=== PATIENT | male | born 1960 | race Caucasian/White ===

== ENCOUNTER → 2021-07-18 13:05 | Outpatient (CLI) | payer BC, SELFPAY ==
--- NOTE | ~2021-07-18 | XR_ITS ---
EXAMINATION: XR chest 2V 07/18/2021 13:25 INDICATION: Wheezing and dyspnea PROCEDURE: 2 view chest COMPARISON: No prior studies for comparison. FINDINGS: The lungs are clear. The cardiomediastinal silhouette is within normal limits. There are no pleural effusions. There is no pneumothorax suspected. IMPRESSION: 1: NO ACUTE CARDIOPULMONARY DISEASE. Reviewed, dictated and finalized at location A. [employer]
== END ==
PROVIDERS: PCP Internal Medicine; Visit Provider Internal Medicine
DX: R06.2 Wheezing (principal)
CPT/HCPCS: 71046

== ENCOUNTER 2021-09-22 10:31 | Outpatient (RCR) | payer BC, SELFPAY ==
[2021-09-22] MEDS: ACETAMINOPHEN 325 MG TABLET 650 MG PO (11:55)
[2021-09-22] MEDS: diphenhydrAMINE HCl CAP 25 MG CAPSULE PO (11:55)
[2021-09-22] MEDS: FAMOTIDINE 20 MG TABLET PO (11:56)
[2021-09-22 11:58] VITALS: BP 117/73; PULSE 60; TEMP 36.7; O2SAT 100
[2021-09-22 13:33] VITALS: BP 125/70; PULSE 55; O2SAT 99
== END 2021-09-22 16:00 ==
LOC: AMCINF 10:31
PROVIDERS: PCP Internal Medicine; Referring Provider Internal Medicine; Visit Provider Internal Medicine Hematology & Oncology
DX: U07.1 COVID-19 (principal); I25.10 Atherosclerotic heart disease of native coronary artery without angina pectoris
CPT/HCPCS: A9270; M0247; Q0247

== ENCOUNTER → 2023-03-12 12:38 | Outpatient (CLI) | payer BC, SELFPAY ==
--- NOTE | ~2023-03-12 | MR_ITS ---
EXAMINATION: MR orbits face neck wo/w con DATE: 03/12/2023 14:29 INDICATION: Other visual disturbances. Temporary loss of vision. Dizziness. TECHNIQUE: Magnetic resonance imaging (MRI) of the orbits was performed without and with 14 mL MultiH ance intravenous contrast. COMPARISON: None. FINDINGS: There is no abnormal mass. The extra-axial muscles and optic nerves are normal. The optic c hiasm is normal. The ocular globes are normal. IMPRESSION: 1. Normal orbits. Reviewed, dictated and finalized at location A. IMPRESSION: 1. Normal orbits.
--- NOTE | ~2023-03-12 | MR_ITS ---
EXAMINATION: MR brain/brain stem wo/w con DATE: 03/12/2023 14:29 INDICATION: Other visual disturbances. Temporary loss of vision. Dizziness. TECHNIQUE: Magnetic resonance imaging (MRI) of the brain and brainstem was performed without and with 14 mL MultiHance intravenous contrast. COMPARISON: None. FINDINGS: There are small old infarcts in the right cerebellum. There are scattered areas of nonspeci fic increased T2-weighted signal intensity in the cerebral white matter, which is within normal limit s for the patient's age. There is no intracranial hemorrhage, acute infarction, or abnormal intracran ial mass lesion. The ventricles are normal in size. The paranasal sinuses are clear. The orbits are n ormal. The mastoid air cells are normal. IMPRESSION: 1. 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 Reviewed, dictated and finalized at location A.
== END ==
PROVIDERS: PCP Internal Medicine
DX: H53.8 Other visual disturbances (principal)
CPT/HCPCS: 70543; 70553; A9577

== ENCOUNTER → 2023-03-12 12:49 | Outpatient (CLI) | payer BC, SELFPAY ==
--- NOTE | ~2023-03-12 | US_ITS ---
EXAMINATION: US carotid duplex BI DATE: 03/12/2023 14:18 INDICATION: Carotid atherosclerosis. TECHNIQUE: Grayscale, color Doppler, and pulsed Doppler images of the cervical carotid arteries were obtained. The degree of vessel stenosis is placed in one of the following categories: normal, <50%, 5 0-69%, >=70% but less than near-occlusion, near-occlusion, or total occlusion. Note that percent sten osis relative to normal distal artery lumen diameter is indirectly measured from velocity measurement s as described by Clark, et al. Radiology 2003; 229:340-346. Notes: Normal: Peak systolic velocity <125 centimeters/sec and no plaque <50%. Peak systolic velocity <125 ( EDV <40; ICA/CCA PSV ratio <2.0; used these factors only a tandem lesions or low cardiac output or co ntralateral disease) 50-69 %: PSV 125-230 (EDV 40-100; ratio 2-4) >= 70% but less than near occlusion: PSV greater than 230 (EDV > 100; ratio> 4.0) Near Occlusion: PSV that is variable; markedly narrowed lumen Occlusion: Absent flow on color/spectral Doppler and no lumen on albright scale. COMPARISON: None. FINDINGS: RIGHT: The right common carotid artery (CCA) peak systolic velocity (PSV) is 105 cm/s. The right internal ca rotid artery (ICA) PSV is 89 cm/s. The right ICA end-diastolic velocity (EDV) is 16 cm/s. The right I CA/CCA PSV ratio is 0.8. The external carotid artery (ECA) PSV is 71 cm/s. There is antegrade flow in the right vertebral artery. LEFT: The left CCA PSV is 116 cm/s. The left ICA PSV is 80 cm/s. The left ICA EDV is 18 cm/s. The left ICA/ CCA PSV ratio is 0.7. The ECA PSV is 72 cm/s. There is antegrade flow in the left vertebral artery. IMPRESSION: 1. Less than 50% stenosis in the right internal carotid artery by sonographic criteria. 2. Less than 50% stenosis in the left internal carotid artery by sonographic criteria. Reviewed, dictated and finalized at location A. IMPRESSION: 1. Less than 50% stenosis in the right internal carotid artery by sonographic gustavo suggs. 2. Less than 50% stenosis in the left internal carotid artery by sonographic rajani sanchez.
== END ==
PROVIDERS: PCP Internal Medicine; Visit Provider Internal Medicine
DX: I65.23 Occlusion and stenosis of bilateral carotid arteries (principal)
CPT/HCPCS: 93880

== ENCOUNTER 2024-10-23 09:55 | Emergency (ER) | payer BC, SELFPAY ==
[2024-10-23 10:08] VITALS: BP 134/54; PULSE 67; RESP 16; TEMP 36.7; O2SAT 98
[2024-10-23 10:15] LABS: EDSTREPNEGPOS1 Negative (Negative)
--- NOTE | 2024-10-23 10:24 | ED.URI ---
HPI - URI/Sore Throat General Chief Complaint: Upper Respiratory Infection Stated Complaint: Sore Throat Time Seen by Provider: 10/23/24 10:24 Source: patient Mode of arrival: ambulatory Limitations: no limitations History of Present Illness HPI Narrative: 64-year-old male presents with complaint of sore throat and postnasal drainage starting yesterday. Afebrile. No body aches, chills or fatigue. Patient concern for strep throat. Thinks he saw white spots on throat this morning. All systems reviewed and negative except as noted above. Related Data Home Medications ?Medication ?Instructions ?Recorded ?Confirmed ?Last Taken ?Type No Home Medications 09/22/21 10/23/24 Unknown History Allergies Allergy/AdvReac Type Severity Reaction Status Date / Time No Known Allergies Allergy Verified 10/23/24 10:00 Review of Systems Review of Systems: CONSTITUTIONAL: Denies fever, chills, or sweats. EYES: Denies visual changes, redness, or discharge. ENT: Denies rhinorrhea, congestion . Reports sore throat. Denies otalgia. CARDIOVASCULAR: Denies chest pain, palpitations, or edema. RESPIRATORY: Denies cough or dyspnea. GASTROINTESTINAL: Denies abdominal pain, nausea, vomiting, or diarrhea. GENITOURINARY: Denies dysuria or hematuria. SKIN: Denies rash or itching. MUSCULOSKELETAL: Denies back pain, joint pain, or myalgia. NEUROLOGIC: Denies headache, numbness, or weakness. PSYCHIATRIC: Denies anxiety or depression. All other systems reviewed are negative, except as documented in HPI. PMFSH Comments At time of signature, agree with nursing past medical, surgical, social and family history. There is no relevant family history pertinent to the presenting complaint. Exam Narrative: GENERAL: This is a well-nourished, well-developed patient, in no apparent distress. HEAD: normocephalic, atraumatic. EYES: PERRL. Sclera clear/white. Vision is grossly intact. EARS: External ears normal, auditory canals clear and without drainage, TMs normal without perforation. Hearing grossly intact. NOSE: External nose normal with clear nasal drainage without significant congestion or swelling to nares THROAT: Mucous membranes moist, mild erythema without and use eights or swelling. Clear postnasal drainage NECK: Neck supple, non-tender without lymphadenopathy, masses or thyromegaly. CARDIOVASCULAR: Regular rate and rhythm without murmurs, gallops, or rubs. RESPIRATORY: Clear to auscultation. Breath sounds equal bilaterally. No wheezes, rales, or rhonchi. SKIN: warm, Dry, intact with no suspicious lesions or rash, good texture and turgor. NEURO: awake, alert, and oriented to person, place and time. There were no obvious focal neurologic abnormalities. EXTREMITIES: No joint tenderness, effusion, or edema noted. Course Course Level of Care: Express Care Visit Vital Signs Vital signs: Vital Signs Temperature 36.7 C 10/23/24 10:08 Pulse Rate 67 10/23/24 10:08 Respiratory Rate 16 10/23/24 10:08 Blood Pressure 134/54 L 10/23/24 10:08 Pulse Oximetry 98 10/23/24 10:08 Oxygen Delivery Room Air 10/23/24 10:08 Temperature 36.7 C 10/23/24 10:08 Pulse Rate 67 10/23/24 10:08 Respiratory Rate 16 10/23/24 10:08 Blood Pressure 134/54 L 10/23/24 10:08 Pulse Oximetry 98 10/23/24 10:08 Oxygen Delivery Room Air 10/23/24 10:08 reviewed MDM - URI/Sore Throat MDM Narrative Medical decision making narrative: negative influenza and strep. Strep culture ordered. Patient is well-appearing, nontoxic. Hemodynamically stable. Will wait for strep culture results prior to treating with antibiotics. Recommend [id number] medications to treat viral symptoms. Please be advised this is a medical document. It is intended for [id number] communication. It is written in medical language and may contain unfamiliar abbreviations or verbiage. Medical documents are intended to carry relevant information, facts as evident, and the clinical opinion of the practitioner at the time of the encounter. This report may have been done utilizing a voice recognition system. Attempts have been made to correct errors. However, there may be uncorrected grammatical, spelling, and recognition errors present. The file time of this note does not necessarily represent the time of service. Differential Diagnosis Differential diagnosis: Likely upper respiratory infection, sinusitis, viral infection, influenza and pharyngitis Lab Data Labs: Lab Results 10/23/24 10/23/24 Range/Units 10:13 10:46 POC Influenza A Ag Negative (Negative) POC Influenza B Ag Negative (Negative) POC Grp A Strep Screen Negative (Negative) Discharge Plan Discharge Clinical Impression: Acute viral pharyngitis Patient Disposition: Home, Self-Care Condition: Stable Instructions: Antibiotic Form, Pharyngitis (ED) Additional Instructions: your influenza and strep test was negative today. A strep culture was ordered and results will take 24-48 hours. If your strep culture is positive we will call you at that time and prescribed an antibiotic. Your symptoms are viral and may last 10-14 days. Take [id number] medications to treat her symptoms. Drink at least 64 oz of water a day. Follow-up with your primary care physician if symptoms are not improving. Patient Language: [place] Prescriptions: No Action No Home Medications Rx Instructions: Patient currently takes no prescription medications. Follow-up/Referrals: Karma Carr MD [Primary Care Provider] - Time of Disposition: 10:53
[2024-10-23 10:48] LABS: EDINFLUASCREEN Negative (Negative); EDINFLUBSCREEN Negative (Negative)
== END 2024-10-23 11:00 | disposition home or self-care (01) ==
PROVIDERS: Emergency Provider Nurse Practitioner Family; PCP Internal Medicine
DX: J02.8 Acute pharyngitis due to other specified organisms (principal); Z20.822 Contact with and (suspected) exposure to COVID-19
CPT/HCPCS: 87081; 87804; 87880; 99203; G0463